=== PATIENT | male | born 1975 | race Caucasian/White ===

== ENCOUNTER 2024-02-16 17:36 | Inpatient (IN) | payer MEDICARE, SELFPAY ==
[2024-02-15 21:35] VITALS: BP 161/99
--- NOTE | 2024-02-16 01:37 | ED.GENMED ---
History of Present Illness
General
Chief Complaint: Back Pain
Source: patient
Exam Limitations: none
Time Seen by Provider: 02/16/24 01:22
Travel History
Have you had any contact with someone who has COVID-19?: No
Do you have any symptoms of coronavirus? Fever > 100 degrees, chills, cough, shortness of breath, sore throat, loss of taste or smell, muscle aches, or headache?: No
History of Present Illness
History of Present Illness:
This is a 48 year old male that comes in with c/o upper back discomfort. Patient states that he was rolling around on the ground working on his car. States that the next day he awoke and he felt like he must have bruised his back as he felt like his
legs were Paralyzed. States that this started a week ago. States that this got better every day but he still feels wobbly in his legs and he is using a can but this is also improving. Denies any fever, chills, chest pain, SOB, abd pain, nausea,
vomiting, diarrhea, bowel or bladder incont, headache, dizziness, urinary burning.
Past History
Past History
ED Past Medical History: Asthma, GERD and Other (Sepsis related to IVDA, Fracture back, Left lung abscess, Endocarditis, )
ED Past Surgical History: Cardiac, Orthopedic (right shoulder surgery, Spinal fusion) and Other (Hernia repair, )
Patient has exhibited threatening behavior?: No
PSI?: No
Social History
Tobacco: Former smoker
Alcohol: None
Drug: IVDA
Personal:
Living: with family
Employment: Employed
Family History
Family History: Other (Noncontributory)
Review of Systems
Review of Systems
All Other Systems: ROS reviewed and negative except as documented in HPI and ROS
Constitutional: Reports no symptoms; Denies fever or chills
EENT: Reports no symptoms
Respiratory: Reports no symptoms; Denies cough or trouble breathing
Cardiac: Reports no symptoms; Denies chest pain
ABD/GI: Reports no symptoms; Denies abdominal pain, nausea, vomiting or diarrhea
: Reports no symptoms; Denies dysuria, frequency or urgency
Musculoskeletal: Reports back pain (Upper back pain)
Skin: Reports no symptoms
Neurological: Reports no symptoms; Denies dizzy or headache
Psychiatric: Reports no symptoms
Phy Exam
General Physical Exam
General Presentation: no apparent distress
General age: appears stated age
General Skin: warm and dry
General Habitus: normal
General Mental: alert
General Hydration: appears well hydrated
ENT Exam
ENT Exam: TM's normal, pharynx normal and neck supple
Eye Exam
Eye Exam: EOMI
Cardiovascular Exam
Cardiovascular Exam: regular rate/rhythm, no edema, normal peripheral pulses and other (Murmur)
Pulmonary Exam
Pulmonary Exam: lungs clear, no respiratory distress, no rales, chest non tender, no crackles, no rhonchi, no wheezing and no cough
Gastrointestinal Exam
Gastrointestinal Exam: normal bowel sounds, non tender, soft, no organomegaly, no pulsatile mass, non distended and other (Large abd hernia, Soft to palpation)
Musculoskeletal Exam
Musculoskeletal Exam: full ROM, no edema and other (Push pulls equal. Able to hold legs up in the air bilateral 5 second. Tenderness to palpation upper back with slight swelling)
Skin Exam
Skin Exam: normal color, warm/dry, no rash and no petechia
Psychiatric Exam
Psychiatric Exam: normal mood/affect
Course
Orders/Labs/Results
Orders:
Orders
02/16/24 01:35
CT Thoracic Spine W/o Iv Contr Urgent
Comment: History of fracture back and spinal fusion
Reason For Exam: Upper back pain
02/16/24 02:09
CRP [C-Reactive Protein] Urgent
Complete Blood Count/With Diff Urgent
Comprehensive Metabolic Panel Urgent
Sed Rate [Erythrocyte Sed Rate] Urgent
02/16/24 03:10
Lactic Acid Urgent
02/16/24 03:15
Blood Culture Q30M
RUSS Source: Blood/Venous
Specimen Description:
02/16/24 03:45
Blood Culture Q30M
RUSS Source: Blood/Venous
Specimen Description:
Abnormal Lab Results
02/16/24
02:09
Hgb 11.1 L g/dL
(13.0-18.0)
Hct 37.2 L %
(39.0-52.0)
MCV 76.2 L fL
(80.0-94.0)
MCH 22.7 L pg
(27.0-31.0)
MCHC 29.8 L g/dL
(33.0-37.0)
RDW 20.0 H %
(11.5-14.5)
Creatinine 0.6 L mg/dL
(0.7-1.3)
Alkaline Phosphatase 135 H U/L
(38-126)
Total Protein 8.7 H g/dl
(6.3-8.2)
02/16/24 02:09
02/16/24 02:09
H/H slightly low. Anemia, Alk phos elevation. Total Protein slightly elevated. CRP normal at 6.60
Vital Signs
Initial and Last Documented VS:
Initial Vital Signs
Temp Pulse Resp BP Pulse Ox
98.0 F 81 18 161/99 98
02/15/24 21:35 02/15/24 21:35 02/15/24 21:35 02/15/24 21:35 02/15/24 21:35
Last Documented Vital Signs
Temp Pulse Resp BP Pulse Ox
98.0 F 68 16 141/87 100
02/15/24 21:35 02/16/24 02:05 02/16/24 02:05 02/16/24 02:05 02/16/24 02:05
Infection Control Nurse consulted with Physician
Infection Control Nurse consulted with physician?: Yes
Name of Physician Consulted: Dr. Benitez
MDM/Problems Addressed
Differential Diagnosis Includes:
Spinal contusion, Spinal abscess
MDM/Problems Addressed:
This is a 48 year old male that comes in with c/o upper back discomfort. States that a week ago he was working on his car and rolling around on the ground. States that the next day he was unable to move his legs but this has improved every day.
States that he is still a little wobbly on his feet and he has been using a cane.
Will check labs and get CT of the thoracic spine.
Back into see patient. Patient just walking back from the bathroom. Wobbly on his feet and using a cane. Explained that his CT is concerning for a discitis/osteomyelitis. Will admit patient and started IV antibiotics. Explained that he will most
likely need an MRI tomorrow. Will admit. Hospitalist notified and IV antibiotics ordered.
Chronic conditions affecting care:
Spinal fusion, Fracture back
Acute Exacerbation and/or Progression of Chronic Illness:
NA
*Radiology
Radiology exam reviewed: radiology read reviewed (CT thoracic night hawk-Posterior spinous fusion hardware from T2-T7. Severe vertebral body height loss with endplate erosion at T2 and T3, comcerning for age-indeterminate Discitis/osteomyelitis.
There is moderate surrounding soft tissue swelling. Correlate with clinical findings. Chronic wedge ) and other (CT cont- deformity at T4-5)
*Pulse Oximetry
Patient hypoxic: no
*EKG
Interpreted by ED Provider?: NA
Rate: EKG- N/A
*Programming Development Project Manager Interpretation
Rate: Programming Development Project Manager- N/A
*Critical Care Note
Total Time (30-74mins, 75-104mins- exclusive of procedures): Not Applicable
ED Attending Note
-
Portions of this chart may have been created with voice recognition software.� Occasional wrong word or��sound alike� substitutions may have occurred due to the inherent limitations of voice recognition software.
Discharge Plan
Departure
Patient Disposition: Admit
Date of Disposition: 02/16/24
Time of Disposition: 03:35
Admit to: Med/Surg
Presentation/result/management discussed w/ accepting MD/DO: Hospitalist
Patient with high blood pressure during this ER visit?: Yes
Condition: Good
Discharge Problem:
Pain, upper back, Discitis vs Osteomyelitis
Prescriptions:
No Action
albuterol sulfate 2.5 MG/3 ML solution for nebulization
2.5 mg inhalation R Q4HPRN PRN (Reason: sob) Qty: 75 0RF
Patient Comments:
07/24/22--Pt said he rarely uses. Mainly when sniffing drug he gets SOB.
albuterol sulfate 1 PUFF HFA aerosol inhaler
2 puff inhalation R Q4HPRN PRN (Reason: sob) Qty: 8.5 0RF
Patient Comments:
07/24/22--Only rarely uses the inhaler. Mainly when he is sniffing drugs
levofloxacin 750 mg tablet
750 mg PO Q24H 28 Days Qty: 28 0RF
ferrous sulfate 325 mg (65 mg iron) tablet
325 mg PO DAILY Qty: 30 0RF
oxycodone
15 mg PO 4XD PRN (Reason: pain)
Lyrica 50 mg
PO BID
Referrals:
Jerson Cho DO [Family Provider] -
Interventions
Interventions:
*General Assessment Last Done: 02/15/24 21:35
ED- Fall Risk Assessment Last Done: 02/16/24 02:26
*ED COVID-19 Vaccine History Last Done: 02/15/24 21:35
ED-Musculoskeletal Assessment Last Done: 02/16/24 02:26
Discharge Date and Time
Print Language: GREENLANDIC
[2024-02-16 02:05] VITALS: BP 141/87
[2024-02-16 02:51] LABS: % Basophils 0.6 % (0-2); % Eosinophils 4.8 % (0-6); % Immature Granulocytes 0.2 % (0-0.5); % Lymphocytes 37.4 % (20.5-51.1); % Monocytes 8.2 % (1.7-9.3); % Neutrophils 48.8 % (42.2-75.2); Absolute Eosinophils 0.3 10^3/uL (0-0.7); Absolute Lymphocytes 2.4 10^3/uL (1.2-3.4); Absolute Monocytes 0.5 10^3/uL (0.1-0.6); Absolute Neutrophils 3.2 10^3/uL (1.4-6.5); Hematocrit 37.2 % (39.0-52.0); Hemoglobin 11.1 g/dL (13.0-18.0); Mean Corp Hgb Conc. 29.8 g/dL (33.0-37.0); Mean Corpuscular Hgb 22.7 pg (27.0-31.0); Mean Corpuscular Volume 76.2 fL (80.0-94.0); Mean Platelet Volume 9.6 fL (7.4-10.4); Nucleated Red Blood Cells % 0 % (-); Platelet Count 267 10^3/uL (130-400); Red Blood Cell Count 4.88 10^6/uL (4.70-6.10); White Blood Cell Count 6.5 10^3/uL (4.8-10.8)
[2024-02-16 03:11] LABS: ALT (SGPT) 16 U/L (0-50); AST (SGOT) 23 U/L (17-59); Albumin 4.5 g/dl (3.5-5.0); Alkaline Phosphatase 135 U/L (38-126); Blood Urea Nitrogen 17 mg/dl (9-20); Calcium 9.6 mg/dl (8.4-10.2); Carbon Dioxide 28 mmol/L (22-30); Chloride 101 mmol/L (98-107); Glucose 98 mg/dl (70-99); Potassium 4.1 mmol/L (3.5-5.1); Sodium 140 mmol/L (135-145); Total Bilirubin 0.4 mg/dl (0.2-1.3); Total Protein 8.7 g/dl (6.3-8.2); eGFR > 60.00
[2024-02-16 03:59] VITALS: BMI 29.4
[2024-02-16 04:21] LABS: Erythrocyte Sed Rate 31 mm/hour (0-20)
[2024-02-16] MEDS: VANCOCIN 200 IV (04:21)
--- NOTE | 2024-02-16 04:30 | EDRN ---
Patient was provided a sandwich and drink, call jean-baptiste in [facility].
[2024-02-16 04:41] LABS: Lactic Acid 1.1 mmol/L (0.7-2.0)
--- NOTE | 2024-02-16 05:59 | HPS.HSE ---
Family Physician
-
Family Physician: Jerson Cho
Chief Complaint
-
Back Pain, LE Weakness
History of Present Illness
Patient is a 48y M with PMH significant for IVDA and prior endocarditis who presents to ED complaining of back pain and LE weakness. Patient states that he was doing work on his car about one week ago and was lying on the hard garage floor for a
prolonged period. The next morning, he woke with pain in the mid back and weakness / heaviness in his legs. He has since been walking with a cane, but does note that the strength in his legs has steadily improved. He had no numbness / tingling
sensations. He's had no incontinence of bowel or bladder. At the moment, patient states that he has no significant back pain. He presented to the ED for evaluation concerned given his prior history of infections and his hardware present in the
thoracic spine.
Patient denies any fevers / chills, N/V/D, chest pain, cough or dyspnea.
He notes that he is currently maintained on methadone (105mg daily). He states that his last use of IVDA was > 6 months ago.
No other illicit substances.
Medical History
Past Medical History
Past Medical History: Reports Other
Additional Past Medical History:
IVDA
Endocarditis
Thoracic Spine Discitis / Osteomyelitis
Asthma
Past Surgical History: Reports Other
Additional Past Surgical History:
Thoracic I&D and T2-T7 Fusion
Endovascular Aortic Valve Debridement / Valvuloplasty
Umbilical Herniorrhaphy
Right Shoulder Surgery
Social History
Tobacco: Former Smoker (Quit smoking at 22yo.)
Alcohol: Occasional (Very rare.)
Drug: IVDA (History of IV heroin / fentanyl use. Last use > 6 months ago.)
Family History
Family History: Not pertinent
Allergies / Home Medications
Allergies reflects when Allergies were last updated in [facility].
Home Medications with original date entered in [facility]
Allergy/Medication List:
Allergies
Allergy/AdvReac Type Severity Reaction Status Date / Time
tramadol Allergy Swelling Verified 02/15/24 21:37
Home Medications
methadone 5 mg tablet 105 mg PO DAILY 02/16/24
Review of Systems
-
History Source: Patient
A 12 point ROS was completed and negative except as noted: Yes
Constitutional: Reports Fatigue; Denies Fever or Chills
Respiratory: Denies Cough or Trouble Breathing
Cardiac: Denies Chest Pain or Palpitations
Abdomen/GI: Denies Abdominal Pain, Nausea, Vomiting or Diarrhea
: Denies Dysuria, Frequency or Flank Pain
Musculoskeletal: Reports Other (Back Pain)
Neurological: Reports Weakness; Denies Dizzy, Headache or Numbness
Psych: Denies Depression or Anxiety
Physical Exam
Vital Signs
Vital Signs
Temp Pulse Resp BP Pulse Ox
98.0 F 68 16 141/87 100
02/15/24 21:35 02/16/24 02:05 02/16/24 02:05 02/16/24 02:05 02/16/24 02:05
Physical Exam
General: Other (48y M in no acute distress.)
HEENT: Moist mucous membranes and PERRLA
Respiratory: Clear; No Wheezes, Rales or Rhonchi
Cardiac: S1/S2, Regular Rhythm and Murmur (IV / JACQUES)
GI: Soft, Non Tender, Non Distended, Normal Bowel Sounds and Other (Large midabdominal hernia. Soft, not tender. Pos BS.)
Musculoskeletal: No Clubbing, No Cyanosis and No Edema
Neuro: AO x 3 and Nonfocal/grossly intact
Laboratory Results
-
02/16/24 02:09
02/16/24 02:09
Laboratory Results
Lactic Acid 1.1 mmol/L (0.7-2.0) 02/16/24 03:59
Total Bilirubin 0.4 mg/dl (0.2-1.3) 02/16/24 02:09
AST 23 U/L (17-59) 02/16/24 02:09
ALT 16 U/L (0-50) 02/16/24 02:09
Alkaline Phosphatase 135 U/L (38-126) H 02/16/24 02:09
Impression/Plan
-
A/P: Patient is a 48y M with PMH significant for IVDA, prior osteo / discitis and thoracic surgery who presents to ED complaining of back pain and LE weakness.
Back Pain
Lower Extremity Weakness
- Observe overnight for further evaluation and treatment.
- His symptoms have largely improved over the past week.
- CT done in the ED shows possible osteo / discitis at T2-3 with surrounding inflammation.
- ESR is unimpressive. He is afebrile, non-toxic appearing.
- Blood cultures obtained in the ED.
- Would observe off of any further abx pending those results, temp changes or clinical changes.
- PT / OT evaluation for improving weakness / gait stability.
- Supportive care for back pain including anti-inflammatories, etc.
- NeuroSurgery evaluation for imaging review / additional evaluation.
- Follow for any new / worsening symptoms.
History of SBE
Murmur
- Check Echo.
- Follow-up blood culture results.
History of IVDA
Opioid Use Disorder
- Patient states that he is maintained on methadone.
- Resume usual dose after confirmation.
- PDMP shows recent Rx for oxycodone and Lyrica from [facility] - though patient states that he is on no other meds.
- Toradol / NSAIDs as needed for acute pain.
DVT Prophylaxis: Lovenox
Code Status: Full
--- NOTE | 2024-02-16 06:00 | EDRN ---
Patient up walking around in room, no complaints
--- NOTE | 2024-02-16 07:04 | EDRN ---
Report given to Larry Albrecht
[2024-02-16 07:11] VITALS: BP 140/85
--- NOTE | 2024-02-16 07:57 | W.PN.HOSP.TC ---
Today's Communication/Plan
-
MRI
Neuro surgery and ID eval
Assessment / Plan
Assessment / Plan
48-year-old male with history of discitis and thoracic surgery presented to the hospital with back pain and lower extremity weakness. He was working on his back on his car. Then he kind of slid off of that almost about 6 inches to the floor on his
back. Then he started feeling pain and weakness of the legs patient states that this happened about 10 days ago but his lower extremity weakness has improved since then.
CT of the thoracic spine-endplate erosions T2 and T3 with lucency adjacent to this close 3023 concern for discitis/osteomyelitis and hardware infection.
On examination awake alert nontoxic-appearing
Cardiovascular system S1-S2 appreciated systolic murmur at right heart border
Abdomen soft and nontender, large ventral hernia
Neuro exam good motor strength distally bilaterally
Denies any sensory deficits
No spine tenderness, kyphotic deformity of the upper thoracic spine with a scar
# Back pain with lower extremity weakness
CT in the ER showing possible osteomyelitis/discitis T2-T3 with surrounding inflammation
Afebrile
Blood cultures collected in the ER
Request neurosurgery infectious disease consultations requested
Neurochecks
MRI of the thoracic spine with and without contrast
No AB now.
#History of IV drug abuse currently maintained on methadone after verification
# T4-5 osteomyelitis and discitis with small epidural abscess and paraspinal abscess status post T4-5 decompression, irrigation debridement , T3-T7 fusion with instrumentation on 06/26/2022 at [place]
L3-L4 osteomyelitis with Lumbar paraspinal abscess .
Cultures with Serratia Marcescens.
Patient was advised to continue minocycline suppression after IV AB
He interrupted IV antibiotics and wanted to leave AMA therefore was given prescription for Levaquin for 6 weeks completion and follow-up recommended, patient states he completed Levaquin.
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
TV endocarditis�2021�Lauren treated at [facility] [place] [facility].
# History of hypertension-does not seem to be on medicines
# Abdominal wall hernia
# DVT prophylaxis-Lovenox
# Full code
Anticipated Discharge: > 48 hours
Subjective/Interval History
-
Date of Service: February 16, 2024
Objective Data
-
Labs:
Laboratory Results
02/16/24
02:09
WBC 6.5
Hgb 11.1 L
Hct 37.2 L
Plt Count 267
Sodium 140
Potassium 4.1
Chloride 101
Carbon Dioxide 28
BUN 17
Creatinine 0.6 L
Glucose 98
Calcium 9.6
Total Bilirubin 0.4
AST 23
ALT 16
Alkaline Phosphatase 135 H
Vital Signs:
Vital Signs
Temp Pulse Resp BP Pulse Ox
98.5 F 82 16 140/85 100
02/16/24 07:11 02/16/24 07:11 02/16/24 07:11 02/16/24 07:11 02/16/24 07:11
[2024-02-16 09:07] LABS: Methadone Positive (Negative)
[2024-02-16 09:08] LABS: Amphetamines Negative (Negative); Barbiturates Negative (Negative); Benzodiazepines Negative (Negative); Buprenorphine Negative (Negative); Cocaine Negative (Negative); Marijuana Negative (Negative); Methamphetamines Negative (Negative); Opiates Negative (Negative); Phencyclidine Negative (Negative); Tricyclic Antidepressants Negative (Negative)
[2024-02-16 09:30] LABS: Fentanyl, Urine Negative (Negative)
--- NOTE | 2024-02-16 09:58 | CON.ID ---
Consultation
-
Date/Time Consultation Requested: February 16, 2024 0814
Date/Time Consultation Performed: February 16, 2024 1000
Requesting Provider: Dr. Lokesh Neri
Performing Provider: Dr. Bridgett Ponce
Reason for Consultation: Back pain; hx discits/osteo with instrumentation 2021
Chief Complaint / Past History
Chief Complaint
Back pain
History of Present Illness
History obtained from review of medical records as well as from the patient. 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
status post decompression, T2-T7 fusion with pedicle screws at [place] in May 2022, culture grew Serratia, he was on short course of IV antibiotic then transition to oral levofloxacin x 6 weeks as patient signed out AMA. In November 2022 he
presented to the ER with acute back pain; MRI of the thoracic spine showed T4, T5 osteo with anterior paraspinal abscess. Blood cultures eventually grew MSSA. At that time ED arrange for transfer to [place] [facility] but patient left AMA. ED called his
. Patient reports he did eventually go to [facility], no surgical intervention, he was treated with IV antibiotics then oral antibiotic. He reports he was not placed on suppressive therapy. Last week he was working under his car
laying on his back on a board. He fell off the board at one point. The next day he developed upper back pain and could not move his legs. Over the course of the week, leg weakness improved but he still uses a cane. His upper back pain also was
improving. No fevers or chills. He reports he has not used IV drugs for more than 6 months.
Past History
Additional Past Medical History:
Hx IVDA on methadone
Hx Serration tricuspid valve IE, pulm septic emboli s/p Angiovac/vege debulking at [facility] (06/2021), completed abx.
Hx T4-T5 osteomyelitis/discitis/epidural abscess s/p decompression, T2-T7 fusion with pedicle screws (06/17/22 @ [place]); cx Serratia s/p2wks IV abx then 6 wks po levofloxacin at time (left AMA).
Picc associated polymicrobial bacteremia (06/2022)
12/24/22 MSSA bacteremia, thoracic T4, T5 osteo, paraspinal abscess, no surgical intervention at [place], tx with course of antibiotic IV then po
Umbilical hernia failed hx repair
Allergy History:
tramadol Allergy (Verified 02/15/24 21:37)
Swelling
Medications Reviewed: Yes
Current Antibiotics:
s/p Vancomycin x 1
Social History
Tobacco: Non-Smoker
Alcohol: None
Drug: Former User (IVDA)
Personal:
Living: With Family
Family History
Family History: Not Pertinent
Review of Systems
Review of Systems
General: Negative Fever, Chills or Change in Appetite
HEENT: Negative Sinus Problems or Headache
Cardiovascular: Negative Chest Pain or Edema
Respiratory: Negative Dyspnea or Cough
Gasteroenterology: Other (no diarrhea); Negative Nausea or Vomiting
Genital / Urological: Negative Dysuria or Flank Pain
Endocrine: Negative Weakness
Skin / Hair / Nails: Negative Rash
Neurological: Negative Headache or Dizziness
All systems: All other systems were reviewed and were negative
Vital Signs
Temp Pulse Resp BP Pulse Ox
98.5 F 82 16 140/85 100
02/16/24 07:11 02/16/24 07:11 02/16/24 07:11 02/16/24 07:11 02/16/24 07:11
Physical Exam
Physical Exam
Constitutional: No Acute Distress and Comfortable
Cardiovascular: Regular Rate and Murmur (LLSB)
Pulmonary: Clear
Gastrointestinal: Soft, Non Tender, Non Distended and Normal Bowel Sounds
Genito-Urinary: Negative CVA Tenderness
Extremities: Negative Edema
Musculoskeletal: Negative Spinal Tenderness
Neurological: AO x 3 and No Motor Deficits (BLE); Negative Meningeal Signs
Lab / Diagnostic Study Results
02/16/24 02:09
02/16/24 02:09
Abs Immat Gran (auto) 0.0 10^3/uL (0-0.05) 02/16/24 02:09
Absolute Neuts (auto) 3.2 10^3/uL (1.4-6.5) 02/16/24 02:09
Absolute Lymphs (auto) 2.4 10^3/uL (1.2-3.4) 02/16/24 02:09
Absolute Monos (auto) 0.5 10^3/uL (0.1-0.6) 02/16/24 02:09
Absolute Basos (auto) 0.0 10^3/uL (0-0.2) 02/16/24 02:09
Immature Gran % 0.2 % (0-0.5) 02/16/24 02:09
Neutrophils % 48.8 % (42.2-75.2) 02/16/24 02:09
Lymphocytes % 37.4 % (20.5-51.1) 02/16/24 02:09
Monocytes % 8.2 % (1.7-9.3) 02/16/24 02:09
Eosinophils % 4.8 % (0-6) 02/16/24 02:09
Basophils % 0.6 % (0-2) 02/16/24 02:09
ESR 31 mm/hour (0-20) H 02/16/24 02:09
Lactic Acid 1.1 mmol/L (0.7-2.0) 02/16/24 03:59
C-Reactive Protein 6.60 mg/L (0.0-10.00) 02/16/24 02:09
Microbiology Results
Micro:
02/16/24 03:59 Blood Culture - Pending
Blood/Venous
02/16/24 03:59 Blood Culture - Pending
Blood/Venous
02/16/24 CT thoracic spine: Postsurgical change of the thoracic spine as above. Endplate erosions at T2 and T3, with lucency adjacent to the screws at T2 and T3, concerning for discitis/osteomyelitis and/or hardware infection.
Assessment / Plan
# Probable thoracic osteo
- CT thorax: Endplate erosions at T2 and T3, with lucency adjacent to the screws at T2 and T3, concerning for discitis/osteomyelitis and/or hardware infection.
- For MRI thoracic spine today
-Agree with hold abx at this time. Pt hemodynamically stable
# Hx IVDA on methadone
Hx Serration tricuspid valve IE, pulm septic emboli s/p Angiovac/vege debulking at [facility] (06/2021), completed abx.
Hx T4-T5 osteomyelitis/discitis/epidural abscess s/p decompression, T2-T7 fusion with pedicle screws (06/17/22 @ [place]); cx Serratia s/p2wks IV abx then 6 wks po levofloxacin at time (left AMA).
12/24/22 MSSA bacteremia, thoracic T4, T5 osteo, paraspinal abscess, no surgical intervention at [place], tx with course of antibiotic IV then po
Care Review
Plan reviewed with: Physician (Dr. Neri)
--- NOTE | 2024-02-16 10:10 | W.PN.UPDATE ---
Update Note
Progress Note Update
Discussed with pharmacy. Patient is following up with [facility] but is visits have not been consistent. Because of his last dose of methadone was 01/24/2024 where he got 50 mg ,we will start with 30 mg today, 40 mg tomorrow and then 50 mg daily after
that.
[2024-02-16] MEDS: PEPCID 20 MG PO (10:19)
[2024-02-16] MEDS: METHADONE 100 MG/10 ML 30 MG PO (10:24)
--- NOTE | 2024-02-16 13:32 | CON.NS ---
Documented by User: Raya Molina PA-C 02/16/24 15:22
Chief Complaint
-
back pain
History of Present Illness
48-year-old male with history of discitis and thoracic surgery completed at [facility] 05/2022, chronic IV drug abuse now on methadone, OM s/p IV antibiotics 07/19 who presented to the hospital with c/o back pain and lower extremity weakness. About 10
days ago, he reports he was working on the back of his car when he slid off the back board and landed on his back. He noted pain and weakness in his legs after the fall. He states he did not have any back pain or leg weakness prior to the accident.
The day after the fall, he was unable to walk. Over the next several days, the strength in his legs improved and he is now able to ambulate with a cane. He presented to the ED after his continued to encourage him to come in for evaluation.
He has numbness in his toes that was not there prior to the fall. CT thoracic spine was completed and demonstrated Endplate erosions at T2 and T3, with lucency adjacent to the screws at T2 and T3. Neurosurgery was consulted for input. WBC is
6.5CRP is 6.8. ESR 31 (decreased from 88 on labs from 12/18). He denies any fevers, chills, difficultly with urination.
Review of Systems
-
All Other Systems: ROS reviewed and negative except as documented in HPI
Medication and Allergies
Home Medications
Home Medications
�Medication �Instructions �Recorded
methadone 10 mg/5 mL oral solution 0 mg PO DAILY opioid use disorder 02/16/24
Allergies
Allergies
Allergy/AdvReac Type Severity Reaction Status Date / Time
tramadol Allergy Swelling Verified 02/15/24 21:37
Physical Exam
-
Exam:
VSS
Awake, alert and oriented xs 3
HEENT: AT/NC
Cn 2-12 grossly intact
Speech: clear/fluent
Motor: 5/5
Sensation intact to crude touch
Respiratory: non labored breathing
Cardiac: RRR
kyphosis of the thoracic spine.
No swelling or edema
Imaging
CT Thoracic spine imaging and report personally reviewed
Exams: CT Thoracic Spine W/o Iv Contr
PROCEDURE: Noncontrast CT examination of the thoracic spine.
CLINICAL INDICATION: Back pain for the past 2 weeks.
TECHNIQUE: Contiguous helical acquisition of the thoracic spine without intravenous contrast. Axial reconstructions and sagittal and coronal reformats provided. Automated dose reduction technique was utilized for this exam.
COMPARISON: No prior studies available for comparison.
FINDINGS:
Spinal hardware extends from T2 through T7. Kyphotic deformity within the thoracic spine.
There is osteophytosis adjacent to the screws, most pronounced at T2 and T3.
Endplate erosions are also seen at T2 and T3.
There is mild associated paravertebral soft tissue swelling.
Remainder of the thoracic spine is within normal limits. Visualized lung sinclair are grossly clear.
IMPRESSION:
1. Postsurgical change of the thoracic spine as above.
2. Endplate erosions at T2 and T3, with lucency adjacent to the screws at T2 and T3, concerning for discitis/osteomyelitis and/or hardware infection.
Problems
-
Problem Status Onset Code
Pain, upper back M54.9
Assessment / Plan
-
48 y/o M with PMH of T2-T7 spinal fusion with Endplate erosions at T2 and T3, with lucency adjacent to the screws at T2 and T3,
--imaging reviewed by neurosurgical attending. No acute neurosurgical intervention indicated
--pain control
--ID for evaluation to determine if patient requires antibiotics. Await blood cx.
--PT/OT
--patient seen and discussed with Dr. Taveras.

Documented by User: Kaycee Taveras MD 02/16/24 15:46
Problems
-
Problem Status Onset Code
Pain, upper back M54.9
Assessment / Plan
-
48 y/o M with PMH of T2-T7 spinal fusion with Endplate erosions at T2 and T3, with lucency adjacent to the screws at T2 and T3,
--imaging reviewed by neurosurgical attending. No acute neurosurgical intervention indicated
--pain control
--ID for evaluation to determine if patient requires antibiotics. Await blood cx.
--PT/OT
--patient seen and discussed with Dr. Taveras.
ATTENDING ATTESTATION:
Patient seen and examined. Patient with history of cervical epidural abscess, status post thoracic decompression and fusion 2 years prior. Patient is postoperative care was managed at [place] in [place], initially, but then he reports that
he did not follow-up in [place] for delayed follow-up care. He reports that he was discharged from his spinal surgeon's care. He presents now with an episode where he fell onto his back on Thursday, and had subsequent onset of bilateral lower
extremity weakness. He reports that the symptoms have since improved. He now is able to ambulate and lift his legs up. He denies any thoracic back pain prior to this episode and currently denies any thoracic back pain. He is on methadone for
history of IV drug abuse, but insist that he has not utilized recreational drugs for quite some time.
CT of the thoracic spine, and MRI of the thoracic spine was reviewed, which demonstrates hardware failure with screw pullout. There is STIR signal hyperintensity noted at T2-T3 as well as within the T2, T3, T4 vertebrae. There appears to be a
pathologic fracture at T2 with severe kyphosis and retropulsion noted. There is ventral spinal cord compression, with signal change in the cord noted at T2. There is acute STIR signal hyperintensity noted within the anterior paraspinal soft
tissues of T1-T4. Additional discussion was held with the radiologist. Imaging was done without contrast. There is no obvious epidural or paraspinal fluid collection to strongly suggest definitively recurrent infection. Findings can also be due
to trauma/chronic inflammatory changes from pseudoarthrosis.
Patient with normal CRP levels, and modestly elevated ESR levels. Blood cultures are pending. Per the patient report, neurological examination is significantly improved since Thursday. Discussed extensively with the patient at bedside. Ultimately,
given his hardware failure, and proximal junctional kyphosis, he will require revision of his thoracic fusion with extension across the cervical thoracic junction. Discussed with infectious disease, and hospital medicine. Also discussed with
radiology to see whether contrast administration or any other radiological studies may be able to delineate whether or not the patient has indolent infection.
Plan will be to await blood cultures, and potentially consider IR guided biopsy. Pending these results, we will coordinate surgical revision surgery. Discussed surgical intervention, indications for surgery, and overall plan with the patient
extensively. Currently, he is amenable to staying in hospital. Will plan to discuss care with patient's , who is reportedly an RN.
Patient can go home per my specialty: No
[2024-02-16 15:06] VITALS: BP 133/81
--- NOTE | 2024-02-16 15:27 | W.PN.UPDATE ---
Update Note
Progress Note Update
MRI noted.
Changes may be secondary to acute fracture of the T2 vertebral body and failure of the posterior instrumentation hardware. No epidural or paraspinal fluid collection to indicate recurrent infection.
Wait for blood cultures.
If negative patient may need interventional radiology biopsy/culture to prove there is no infection prior to surgery.
Patient does not want to go back to [place]
Neurosurgery was consulted and following
Case discussed with neurosurgery and infectious disease.
Echo with a tricuspid density present but smaller in size than previous echo done here.
[2024-02-16 17:00] VITALS: BP 150/92; BMI 24.9
[2024-02-16] MEDS: LOVENOX 40 MG SC (17:17)
[2024-02-16] MEDS: PEPCID PO ×2 (20:09→20:14)
[2024-02-16 23:29] VITALS: BP 140/85
[2024-02-17 05:15] LABS: Hematocrit 35.4 % (39.0-52.0); Hemoglobin 10.9 g/dL (13.0-18.0); Mean Corp Hgb Conc. 30.8 g/dL (33.0-37.0); Mean Corpuscular Hgb 22.9 pg (27.0-31.0); Mean Corpuscular Volume 74.2 fL (80.0-94.0); Mean Platelet Volume 9.1 fL (7.4-10.4); Platelet Count 261 10^3/uL (130-400); Red Blood Cell Count 4.77 10^6/uL (4.70-6.10); Red Cell Dist. Width 20.3 % (11.5-14.5); White Blood Cell Count 6.1 10^3/uL (4.8-10.8)
[2024-02-17 05:42] LABS: Blood Urea Nitrogen 18 mg/dl (9-20); Calcium 9.6 mg/dl (8.4-10.2); Carbon Dioxide 27 mmol/L (22-30); Chloride 101 mmol/L (98-107); Estimated Creatinine Clearance > 125 ml/min; Glucose 102 mg/dl (70-99); Potassium 4.2 mmol/L (3.5-5.1); Sodium 139 mmol/L (135-145); eGFR > 60.00
[2024-02-17 07:45] VITALS: BP 139/93
[2024-02-17] MEDS: PEPCID PO ×2 (08:21→20:27)
[2024-02-17] MEDS: METHADONE 100 MG/10 ML 40 MG PO (10:56)
--- NOTE | 2024-02-17 11:58 | CM ---
Patient lives with his spouse, who is a nurse, in a 2 story home, patient is independent with adl's and ambulation, patient has a cane that he occasionally uses, Patient drives, home when stable, patient has a prescription plan and uses [facility]
pharmacy.
Plan; Home with spouse when stable.
--- NOTE | 2024-02-17 13:34 | W.PN.UPDATE ---
Update Note
Progress Note Update
Extensive discussion was held via telephone with patient's , Kari, with patient's permission on afternoon of 02/16/2024. Discussed imaging findings, and also current management plan.
She expressed understanding.
[2024-02-17 15:00] VITALS: BP 134/80
--- NOTE | 2024-02-17 15:10 | W.PN.HOSP.TC ---
Today's Communication/Plan
-
Brace
PT eval
Cancel interventional radiology consult
Assessment / Plan
Assessment / Plan
48-year-old male with history of discitis and thoracic surgery presented to the hospital with back pain and lower extremity weakness. He was working on his back on his car. Then he kind of slid off of that almost about 6 inches to the floor on his
back. Then he started feeling pain and weakness of the legs patient states that this happened about 10 days ago but his lower extremity weakness has improved since then.
CT of the thoracic spine-endplate erosions T2 and T3 with lucency adjacent to this close 3023 concern for discitis/osteomyelitis and hardware infection.
MRI of thoracic spine-more medicine will density changes T2, T3, T4 and T2/T3 intervertebral disc and edema in the anterior paraspinal soft tissue could be aseptic edema secondary to acute fracture of the T2 vertebral body and failure of the
posterior instrumentation hardware. No epidural or paraspinal fluid collection to strongly assess to suggest osteomyelitis or discitis.
Echo 02/16/2024-history of tricuspid valve endocarditis. Mild enlarged RV size and normal RV systolic function. Mildly dilated RA. Moderate TR. Mobile echodensity 1 cm in the bicuspid valve smaller than from 2021
On examination awake alert nontoxic-appearing
Cardiovascular system S1-S2 appreciated systolic murmur at right heart border
Abdomen soft and nontender, large ventral hernia
Neuro exam good motor strength distally bilaterally
Denies any sensory deficits
No spine tenderness, kyphotic deformity of the upper thoracic spine with a scar
# Back pain with lower extremity weakness prior to admission
5/5 strength of lower extremities on extra
Afebrile
Blood cultures negative so far
Neurochecks stable
No AB now.
Interventional radiology not clear which area can be biopsied there is no collection.
Discussed with infectious disease and neurosurgery. At this point patient may be discharged home with a brace which I have ordered and then eventually go back to surgery. He may get OR cultures sent. Will cancel IR consult
#History of IV drug abuse currently maintained on methadone .
Patient was not very compliant with this dose therefore we will start with a low-dose and will discharge on 50 mg daily dosage.
# T4-5 osteomyelitis and discitis with small epidural abscess and paraspinal abscess status post T4-5 decompression, irrigation debridement , T3-T7 fusion with instrumentation on 06/26/2022 at [place]
L3-L4 osteomyelitis with Lumbar paraspinal abscess .
Cultures with Serratia Marcescens.
Patient was advised to continue minocycline suppression after IV AB
He interrupted IV antibiotics and wanted to leave AMA therefore was given prescription for Levaquin for 6 weeks completion and follow-up recommended, patient states he completed Levaquin.
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
TV endocarditis�2021�Lauren treated at [facility].
Echo with vegetation is much smaller than in 2021
# History of hypertension-does not seem to be on medicines-blood pressure mostly stable
# Abdominal wall hernia
# DVT prophylaxis-Lovenox
# Full code
Discussed with infectious disease, interventional radiology and neurosurgery
Neurosurgery will discuss with patient's tomorrow
Orthotic brace ordered
Anticipated Discharge: Within 24 hours
Subjective/Interval History
-
Date of Service: February 17, 2024
Objective Data
-
Labs:
Laboratory Results
02/17/24
05:01
WBC 6.1
Hgb 10.9 L
Hct 35.4 L
Plt Count 261
Sodium 139
Potassium 4.2
Chloride 101
Carbon Dioxide 27
BUN 18
Creatinine 0.6 L
Glucose 102 H
Calcium 9.6
Vital Signs:
Vital Signs
Temp Pulse Resp BP Pulse Ox
98.5 F 75 18 139/93 99
02/17/24 07:45 02/17/24 07:45 02/17/24 07:45 02/17/24 07:45 02/17/24 07:45
I&O
02/16/24 02/17/24 02/18/24
06:59 06:59 06:59
Intake Total 600 / 600
Output Total 0 / 0
Balance 600 / 600
--- NOTE | 2024-02-17 16:36 | W.PN.ID1 ---
Date of Service
Date of Service: February 17, 2024
Today's Communication
Observe off abx.
See below.
Assessment / Plan
# Acute back pain
# Hx IVDA on methadone
# Hx Serratia tricuspid valve IE, pulm septic emboli s/p Angiovac/vege debulking at [facility] (06/2021), completed abx.
# Hx T4-T5 osteomyelitis/discitis/epidural abscess s/p decompression, T2-T7 fusion with pedicle screws (06/17/22 @ [place]); cx Serratia s/p2wks IV abx then 6 wks po levofloxacin at time (left AMA).
# Hx 12/24/22 MSSA bacteremia, thoracic T4, T5 osteo, paraspinal abscess, no surgical intervention at [place], tx with course of antibiotic IV then po
-MRI thoracic spine acute acute fracture of T2 vertebral body and failure of posterior instrumentation hardware
- Afebrile, normal wbc, normal CRP
-Blood cx's neg to date.
-TTE Tricuspid valve vege smaller compared to previous (pt h/o treated TV IE).
- Spine without fluid to aspirate.
-Extremely low suspicion for discitis/osteo of spine
Observe off antibiotic
Recommend at time of eventual hardware revision, send OR cultures. If positive, will treat with IV abx then suppressive abx.
Neurosurgeon Dr. Taveras agree with plan.
Chief Complaint
-: Other (Back pain)
Subjective / Review of Systems
No new complaints.
Vital Signs / Physical Exam
Vital Signs
Vital Signs
Temp Pulse Resp BP Pulse Ox
98.1 F 82 14 134/80 98
02/17/24 15:00 02/17/24 15:00 02/17/24 15:00 02/17/24 15:00 02/17/24 15:00
Physical Exam
Constitutional: No Acute Distress and Comfortable
Cardiovascular: Regular Rate, S1/S2 and Murmur
Pulmonary: Clear
Gastrointestinal: Soft, Non Tender and Non Distended
Neurological: AO x 3
Objective Data
Lab Data
Lab Results
02/17/24 05:01
02/17/24 05:01
ESR 31 mm/hour (0-20) H 02/16/24 02:09
Estimated Creat Clear > 125 ml/min 02/17/24 05:01
Lactic Acid 1.1 mmol/L (0.7-2.0) 02/16/24 03:59
Total Bilirubin 0.4 mg/dl (0.2-1.3) 02/16/24 02:09
AST 23 U/L (17-59) 02/16/24 02:09
ALT 16 U/L (0-50) 02/16/24 02:09
Alkaline Phosphatase 135 U/L (38-126) H 02/16/24 02:09
C-Reactive Protein 6.60 mg/L (0.0-10.00) 02/16/24 02:09
Most recent labs reviewed.
Micro Results:
02/16/24 03:59 Blood Culture - Preliminary
Blood/Venous No Growth in 24 hours- Final report to follow
02/16/24 03:59 Blood Culture - Preliminary
Blood/Venous No Growth in 24 hours- Final report to follow
02/16/24 17:21 MRSA Screen - Pending
Nose
02/16/24 CT thoracic spine: Postsurgical change of the thoracic spine as above. Endplate erosions at T2 and T3, with lucency adjacent to the screws at T2 and T3, concerning for discitis/osteomyelitis and/or hardware infection.
02/16/24 MRI thoracic spine wo: ACUTE INFECTIOUS DISCITIS at T2/T3. ACUTE OSTEOMYELITIS in the T2, T3, and T4 vertebra. ACUTE PATHOLOGIC FRACTURE of the T2 vertebral body with anterior vertebral body collapse, a severely exaggerated kyphosis, and
retropulsion of the posterior cortex causing MODERATE SPINAL CORD COMPRESSION and CENTRAL CANAL STENOSIS. Mild edema or myelomalacia in the spinal cord at the T2 level.
Osseous fusion across the T3/T4 intervertebral disc. Bilateral posterior osseous fusion from T2 to T6. Acute infectious phlegmon in the anterior paraspinal soft tissues at T1-T4. ADDENDUM: The bone marrow signal intensity changes in the T2, T3, and
T4 vertebra, the signal intensity changes in the T2/T3 intervertebral disc, and the edema in the anterior paraspinal soft tissues could all be aseptic edema secondary to the ACUTE FRACTURE of the T2 VERTEBRAL BODY and FAILURE of the POSTERIOR
INSTRUMENTATION HARDWARE. There is no epidural or paraspinal fluid collection to strongly suggest that the findings are secondary to recurrent infection (acute osteomyelitis and acute infectious discitis).
Care Review
Plan reviewed with: Physician (Halle Galindo)
[2024-02-17] MEDS: LOVENOX 40 MG SC (17:27)
[2024-02-17 23:20] VITALS: BP 116/78
[2024-02-18 07:30] VITALS: BP 124/83
[2024-02-18] MEDS: PEPCID PO (07:37)
[2024-02-18] MEDS: METHADONE 100 MG/10 ML 50 MG PO (08:35)
[2024-02-18 14:57] VITALS: BP 123/86; PULSE 86
[2024-02-18 15:05] VITALS: BP 123/86; PULSE 86
--- NOTE | 2024-02-18 15:09 | W.PN.HOSP.TC ---
Today's Communication/Plan
-
Discharge today after seen by PT OT and cleared
Patient to use orthotic brace on the he follows up with neurosurgery
Assessment / Plan
Assessment / Plan
48-year-old male with history of discitis and thoracic surgery presented to the hospital with back pain and lower extremity weakness. He was working on his back on his car. Then he kind of slid off of that almost about 6 inches to the floor on his
back. Then he started feeling pain and weakness of the legs patient states that this happened about 10 days ago but his lower extremity weakness has improved since then.
CT of the thoracic spine-endplate erosions T2 and T3 with lucency adjacent to this close 3023 concern for discitis/osteomyelitis and hardware infection.
MRI of thoracic spine-more medicine will density changes T2, T3, T4 and T2/T3 intervertebral disc and edema in the anterior paraspinal soft tissue could be aseptic edema secondary to acute fracture of the T2 vertebral body and failure of the
posterior instrumentation hardware. No epidural or paraspinal fluid collection to strongly assess to suggest osteomyelitis or discitis.
Echo 02/16/2024-history of tricuspid valve endocarditis. Mild enlarged RV size and normal RV systolic function. Mildly dilated RA. Moderate TR. Mobile echodensity 1 cm in the bicuspid valve smaller than from 2021
On examination awake alert nontoxic-appearing
Cardiovascular system S1-S2 appreciated systolic murmur at right heart border
Abdomen soft and nontender, large ventral hernia
Neuro exam good motor strength distally bilaterally
Denies any sensory deficits
No spine tenderness, kyphotic deformity of the upper thoracic spine with a scar
# Back pain with lower extremity weakness prior to admission
5/5 strength of lower extremities on extra
Afebrile
Blood cultures negative so far
Neurochecks stable
No AB now.
Discussed with neurosurgery
Brace ordered yesterday is here.
Patient getting physical therapy with that.
Plan is for the patient to follow-up with neurosurgery next week for surgery. Neurosurgery spoke to patient's and updated.
#History of IV drug abuse currently maintained on methadone .
Patient was not very compliant with this dose therefore we will start with a low-dose and will discharge on 50 mg daily dosage.
# T4-5 osteomyelitis and discitis with small epidural abscess and paraspinal abscess status post T4-5 decompression, irrigation debridement , T3-T7 fusion with instrumentation on 06/26/2022 at [place]
L3-L4 osteomyelitis with Lumbar paraspinal abscess .
Cultures with Serratia Marcescens.
Patient was advised to continue minocycline suppression after IV AB. He was not taking.
He interrupted IV antibiotics and wanted to leave AMA therefore was given prescription for Levaquin for 6 weeks completion and follow-up recommended, patient states he completed Levaquin.
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
TV endocarditis�2021�Lauren treated at [facility].
Echo with vegetation is much smaller than in 2021
# History of hypertension-does not seem to be on medicines-blood pressure mostly stable
# Abdominal wall hernia
# DVT prophylaxis-Lovenox
# Full code
Discussed with infectious disease, and neurosurgery
Orthotic brace is here and patient will need to use that he is aware.
Plan is for him to get outpatient surgery.
OR cultures will be obtained.
Antibiotics until then
Anticipated Discharge: Today
Subjective/Interval History
-
Date of Service: February 18, 2024
Objective Data
-
Vital Signs:
Vital Signs
Temp Pulse Resp BP Pulse Ox
98.1 F 81 18 124/83 98
02/18/24 07:30 02/18/24 07:30 02/18/24 07:30 02/18/24 07:30 02/18/24 07:30
I&O
02/17/24 02/18/24 02/19/24
06:59 06:59 06:59
Intake Total 600 / 600 1440 / 1440
Output Total 0 / 0
Balance 600 / 600 1440 / 1440
[2024-02-18 15:13] VITALS: BP 123/80
--- NOTE | 2024-02-18 15:16 | W.DS.TRANS ---
Addendum entered and electronically signed by Lokesh Neri MD 02/18/24 15:21:
Dictation- [id number]
Original Note:
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
-
Discharge Instructions:
Discharge Diagnosis/Procedures Abnormal changes in the thoracic spine-fracture
of T2 vertebral body, history of tricuspid valve
endocarditis,
Diet As tolerated
Activity No strenuous activity
Additional Activity Use thoracic orthotic brace as instructed
Driving Restrictions Not until seen by your Dr
Instructions:
Stand-Alone Forms:
Changes to Home Medications: Yes
Discharge Medications:
DC Medications w/original date entered in [facility]
acetaminophen 325 mg tablet 650 mg (2 x 325 mg) PO Q4HPRN PRN pain #0 tabs 02/18/24
lidocaine 4 % topical patch 1 patch topical DAILY Pain #0 ea 02/18/24
methadone 10 mg/mL oral concentrate (Methadose) 50 mg (5 mL) PO DAILY IVDA #0 mL 02/18/24
sennosides 8.6 mg tablet (Senokot) 8.6 mg PO BID PRN Constipation #60 tabs 02/18/24
Home Medication Changes
new
acetaminophen 325 mg tablet 650 mg (2 x 325 mg) PO Q4HPRN PRN pain #0 tabs 02/18/24
lidocaine 4 % topical patch 1 patch topical DAILY Pain #0 ea 02/18/24
sennosides 8.6 mg tablet (Senokot) 8.6 mg PO BID PRN Constipation #60 tabs 02/18/24
Pending Results: No
--- NOTE | 2024-02-18 15:36 | CM ---
Chart reviewed plan is home today no needs.
Plan; Home no needs.
--- NOTE | 2024-02-18 16:40 | PN.NS ---
Subjective
-
Patient seen and examined. Reports leg strength continues to improve. Patient was in bathroom while I entered into room.
Physical Exam
-
Exam:
Exam:
VSS
Awake, alert and oriented xs 3
HEENT: AT/NC
Cn 2-12 grossly intact
Speech: clear/fluent
Motor: 5/5 in bed
Gait: spastic
Cervicothoracic kyphotic deformity
Sensation intact to crude touch
Respiratory: non labored breathing
Cardiac: RRR
kyphosis of the thoracic spine.
No swelling or edema
Problems
-
Problem Status Onset Code
Pain, upper back M54.9
Assessment / Plan
-
48 y/o M with PMH of T2-T7 spinal fusion with Endplate erosions at T2 and T3, with lucency adjacent to the screws at T2 and T3,
Patient with Cervicothoracic hardware failure and proximal junctional kyphosis. Unclear whether patient has indolent infection, however, CRP levels and blood cultures are low and negative.
Extensive discussion held with patient and via telephone at bedside.
Patient will require revision and extension of thoracic fusion.
Will plan on obtaining intraoperative cultures.
Patient with [employer] brace at bedside.
I instructed patient to wear brace at all time when weightbearing, avoid strenuous activities and to follow up in office next week with Dr. Jimenez to discuss surgical planning. Should he have any new or worsening weakness in legs, he is
instructed to immediately return to ED.
and patient expresses understanding of plan and are in agreement to come in for follow up next week.
Today's Communication
-
discussed with patient, , RN, hospitalist and ID.
== END 2024-02-18 17:03 | disposition home or self-care (01) | DRG 552 ==
LOC: 4 WEST ACU 17:36
PROVIDERS: Clinical Nurse Specialist Family Health; ADMITTING PHYSICIAN Hospitalist; ATTENDING PHYSICIAN Hospitalist; CONSULT PHYSICIAN Internal Medicine Infectious Disease; CONSULT PHYSICIAN Neurological Surgery; EMERGENCY PHYSICIAN Emergency Medicine; FAMILY PHYSICIAN Family Medicine
DX: S22.029A Unspecified fracture of second thoracic vertebra, initial encounter for closed fracture (principal); M46.24 Osteomyelitis of vertebra, thoracic region; Z87.891 Personal history of nicotine dependence; M46.44 Discitis, unspecified, thoracic region; Z53.29 Procedure and treatment not carried out because of patient's decision for other reasons
CPT/HCPCS: 72128; 72146; 80048; 80053; 80306; 80307; 83605; 85025; 85027; 85652; 86140; 87040; 87070; 93306; 96365; 97530; 97535; 99285

== ENCOUNTER 2025-03-04 01:48 | Emergency (ER) | payer MEDICARE, SELFPAY ==
[2025-03-04 01:50] VITALS: BP 148/101
[2025-03-04 01:52] VITALS: BP 148/101; BMI 23.9
--- NOTE | 2025-03-04 02:31 | ED.GENMED ---
History of Present Illness
General
Chief Complaint: Abdominal Symptoms
Source: patient
Exam Limitations: none
Time Seen by Provider: 03/04/25 01:59
Nursing documentation reviewed up to this point in time: agreed with
History of Present Illness
History of Present Illness:
49-year-old male presents emergency department while in police custody, brought for clearance for [facility]pc. He reported that he has C. difficile and is currently taking vancomycin. He was ordered to the emergency department for concerns for contagion.
He also reports he has an abdominal hernia that needs to be operated upon. He denies any abdominal pain at this time.
Past History
Past History
ED Past Medical History: Asthma, GERD and Other (Sepsis related to IVDA, Fracture back, Left lung abscess, Endocarditis, )
ED Past Surgical History: Cardiac, Orthopedic (right shoulder surgery, Spinal fusion) and Other (Hernia repair, )
Patient has exhibited threatening behavior?: No
PSI?: No
Social History
Tobacco: Former smoker
Alcohol: None
Drug: IVDA
Personal:
Living: with family
Employment: Employed
Family History
Family History: Other (Noncontributory)
Review of Systems
Review of Systems
Allergies reviewed?: Yes
All Other Systems: Not applicable
Constitutional: Reports no symptoms
EENT: Reports no symptoms
Respiratory: Reports no symptoms
Cardiac: Reports no symptoms
ABD/GI: Reports diarrhea; Denies abdominal pain
: Reports no symptoms
Musculoskeletal: Reports no symptoms
Skin: Reports no symptoms
Neurological: Reports no symptoms
Endocrine: Reports no symptoms
Hematologic/Lymphatic: Reports no symptoms
Psychiatric: Reports no symptoms
Phy Exam
Physical Exam
Physical Exam:
Physical Exam
General: no apparent distress, not acutely ill
Neck: supple. no meningeal signs. normal posterior pharynx
Heart: s1/s2 regular rate and rhythm, no murmur. equal radial
pulses.
HEENT: Pupils equal round reactive to light, EOMI
Lungs: no acute respiratory distress. clear bilaterally
Abdomen: normal bowel sounds. not tender. no CVAT, large ventral hernia infraumbilical, nontender
Neuro: alert and oriented. no focal neurological deficits cranial nerves II through XII intact
Skin: no rash
Psychiatric: well kept. interactive and cooperative
Extremities: no edema. no calf tenderness. negative homans. good distal pulses
Course
Orders/Labs/Results
Orders:
Orders
03/04/25 02:10
Complete Blood Count/With Diff Urgent
Comprehensive Metabolic Panel Urgent
Lipase Urgent
Abnormal Lab Results
03/04/25
02:10
Hgb 11.9 L g/dL
(13.0-18.0)
Hct 36.3 L %
(39.0-52.0)
MCV 73.9 L fL
(80.0-94.0)
MCH 24.2 L pg
(27.0-31.0)
MCHC 32.8 L g/dL
(33.0-37.0)
RDW 15.3 H %
(11.5-14.5)
Absolute Monos (auto) 0.8 H 10^3/uL
(0.1-0.6)
Monocytes % 11.2 H %
(1.7-9.3)
Lipase 13 L U/L
(23-300)
03/04/25 02:10
03/04/25 02:10
Vital Signs
Initial and Last Documented VS:
Initial Vital Signs
BP
148/101
03/04/25 01:50
Last Documented Vital Signs
Temp Pulse Resp BP Pulse Ox
97.6 F 83 18 148/101 99
03/04/25 01:52 03/04/25 01:52 03/04/25 01:52 03/04/25 01:52 03/04/25 01:52
MDM/Problems Addressed
Differential Diagnosis Includes:
Incarcerated hernia, C. difficile
MDM/Problems Addressed:
49-year-old male with reports of diarrhea and C. difficile. No confirmed laboratory findings, but will continue patient's vancomycin follow-up with [facility].
*Pulse Oximetry
Patient hypoxic: no
*Critical Care Note
Total Time (30-74mins, 75-104mins- exclusive of procedures): Not Applicable
Data Reviewed
Further Testing Considered But Not Given:
ct a/p not indicated
Patient Management
Social determinants of health affecting care: Living situation and Financial situation
Escalation/DeEscalation of care consider admission/obs:
admit not indicated
ED Attending Note
-
Portions of this chart may have been created with voice recognition software.� Occasional wrong word or��sound alike� substitutions may have occurred due to the inherent limitations of voice recognition software.
Discharge Plan
Departure
Patient Disposition: [facility]
Date of Disposition: 03/04/25
Time of Disposition: 03:11
Patient with high blood pressure during this ER visit?: Yes
Condition: Good
Discharge Problem:
Diarrhea
Instructions: Diarrhea in teens and adults
Prescriptions:
New
vancomycin 125 mg capsule
125 mg PO QID 7 Days Qty: 28 0RF
No Action
acetaminophen 325 mg Tablet
650 mg PO Q4HPRN PRN (Reason: pain) Qty: 0 0RF
lidocaine 4 % Adhesive Patch,Medicated
1 patch topical DAILY Qty: 0 0RF
methadone [Methadose] 10 mg/mL Concentrate
50 mg PO DAILY Qty: 0 0RF
sennosides [Senokot] 8.6 mg tablet
8.6 mg PO BID PRN (Reason: Constipation) Qty: 60 0RF
Referrals:
UNKNOWN - PT DOES,NOT KNOW [Family Provider]
Activity Restrictions/Additional Instructions:
Follow-up with [facility]. You will need to follow-up with your surgeon as scheduled for your abdominal hernia.
Interventions
Interventions:
*Risk Screen - Suicide Last Done: 03/04/25 01:52
*General Assessment Last Done: 03/04/25 01:52
*Neglect/Abuse Screening Last Done: 03/04/25 01:52
*ED- Fall Risk Assessment Last Done: 03/04/25 01:57
*ED COVID-19 Vaccine History Last Done: 03/04/25 01:57
IB-Hxfshf-Zhxyigpfce Assessment Last Done: 03/04/25 01:57
Discharge Date and Time
Print Language: PANAMANIAN
[2025-03-04 02:42] LABS: % Basophils 0.7 % (0-2); % Eosinophils 4.6 % (0-6); % Immature Granulocytes 0.1 % (0-0.5); % Lymphocytes 24.6 % (20.5-51.1); % Monocytes 11.2 % (1.7-9.3); % Neutrophils 58.8 % (42.2-75.2); Absolute Basophils 0.1 10^3/uL (0-0.2); Absolute Eosinophils 0.3 10^3/uL (0-0.7); Absolute Lymphocytes 1.7 10^3/uL (1.2-3.4); Absolute Monocytes 0.8 10^3/uL (0.1-0.6); Hematocrit 36.3 % (39.0-52.0); Hemoglobin 11.9 g/dL (13.0-18.0); Mean Corp Hgb Conc. 32.8 g/dL (33.0-37.0); Mean Corpuscular Hgb 24.2 pg (27.0-31.0); Mean Corpuscular Volume 73.9 fL (80.0-94.0); Mean Platelet Volume 9.5 fL (7.4-10.4); Nucleated Red Blood Cells % 0 % (-); Platelet Count 333 10^3/uL (130-400); Red Blood Cell Count 4.91 10^6/uL (4.70-6.10); Red Cell Dist. Width 15.3 % (11.5-14.5); White Blood Cell Count 6.7 10^3/uL (4.8-10.8)
[2025-03-04 03:05] LABS: Blood Urea Nitrogen 14 mg/dl (9-20); Calcium 8.7 mg/dl (8.4-10.2); Carbon Dioxide 28 mmol/L (22-30); Chloride 102 mmol/L (98-107); Estimated Creatinine Clearance > 125 ml/min; Glucose 94 mg/dl (70-99); Lipase 13 U/L (23-300); Sodium 137 mmol/L (135-145); eGFR > 60.00
== END 2025-03-04 03:22 ==
LOC: EMR 01:48
PROVIDERS: EMERGENCY PHYSICIAN Emergency Medicine
DX: R19.7 Diarrhea, unspecified (principal); R10.9 Unspecified abdominal pain; R03.0 Elevated blood-pressure reading, without diagnosis of hypertension; B96.89 Other specified bacterial agents as the cause of diseases classified elsewhere; K46.9 Unspecified abdominal hernia without obstruction or gangrene; J45.909 Unspecified asthma, uncomplicated; K21.9 Gastro-esophageal reflux disease without esophagitis; F19.11 Other psychoactive substance abuse, in remission; Z98.1 Arthrodesis status; Z87.891 Personal history of nicotine dependence; Z88.6 Allergy status to analgesic agent
CPT/HCPCS: 99283; 80048; 83690; 85025

== ENCOUNTER 2025-03-06 17:09 | Emergency (ER) | payer MEDICARE, SELFPAY ==
[2025-03-06 17:14] VITALS: BP 147/92
--- NOTE | 2025-03-06 20:16 | ED.GENMED ---
History of Present Illness
General
Chief Complaint: Fall
Source: patient, records and previous radiology exam
Exam Limitations: none
Time Seen by Provider: 03/06/25 19:43
Nursing documentation reviewed up to this point in time: agreed with
History of Present Illness
History of Present Illness:
49-year-old male presents with pain at his known umbilical hernia states he fell at the store hit his hernia has had previous surgery there, had no vomiting no fever my evaluation he is resting comfortably in no acute distress
Past History
Past History
ED Past Medical History: Asthma, GERD and Other (Sepsis related to IVDA, Fracture back, Left lung abscess, Endocarditis, )
ED Past Surgical History: Cardiac, Orthopedic (right shoulder surgery, Spinal fusion) and Other (Hernia repair, )
Patient has exhibited threatening behavior?: No
PSI?: No
Social History
Tobacco: Former smoker
Alcohol: None
Drug: IVDA
Personal:
Living: with family
Employment: Employed
Family History
Family History: Other (Noncontributory)
Review of Systems
Review of Systems
All Other Systems: Not applicable
Constitutional: Denies fever
ABD/GI: Reports abdominal pain (No pain but swelling)
Phy Exam
Physical Exam
Physical Exam:
Physical Exam
General: 49-year-old male watching TV
Neck: No jaundice
Heart: s1/s2 regular rate and rhythm, no murmur. equal radial pulses.
Lungs: no acute respiratory distress. clear bilaterally
Abdomen: Soft large approximately 10 x 10 cm nontender soft abdominal wall hernia
Neuro: alert and oriented. no focal neurological deficits
Skin: no rash
Psychiatric: well kept. interactive and cooperative
Extremities: no edema.
Course
Orders/Labs/Results
Orders:
Orders
03/06/25 20:14
Acetaminophen [Tylenol] 650 mg PO NOW STA
Vital Signs
Initial and Last Documented VS:
Initial Vital Signs
Temp Pulse Resp BP Pulse Ox
98.5 F 89 16 147/92 98
03/06/25 17:14 03/06/25 17:14 03/06/25 17:14 03/06/25 17:14 03/06/25 17:14
Last Documented Vital Signs
Temp Pulse Resp BP Pulse Ox
98.5 F 89 16 147/92 98
03/06/25 17:14 03/06/25 17:14 03/06/25 17:14 03/06/25 17:14 03/06/25 17:14
MDM/Problems Addressed
Differential Diagnosis Includes:
Hernia local trauma no signs of incarceration or strangulation
MDM/Problems Addressed:
Abdominal wall hernia
Chronic conditions affecting care: Previous abdomnial surgery
Acute Exacerbation and/or Progression of Chronic Illness: Previous abdomnial surgery
*Radiology
Radiology exam reviewed: other (CT report from previously noted)
*Pulse Oximetry
Patient hypoxic: no
*Critical Care Note
Total Time (30-74mins, 75-104mins- exclusive of procedures): Not Applicable
Update Note
Update Note:
Update, patient thinks his hernia is larger since he fell there is no signs of strangulation, herniation, soft, nontender I did review a prior CAT scan hernia does not appear to be a new issue, I did review his PDMP, he has chronic pain syndrome he
is disabled, I have recommended that he follow-up with general surgery to talk about elective repair I see no indication for admission now or imaging
ED Attending Note
-
Portions of this chart may have been created with voice recognition software.� Occasional wrong word or��sound alike� substitutions may have occurred due to the inherent limitations of voice recognition software.
Discharge Plan
Departure
Patient Disposition: Home (Routine Discharge)
Date of Disposition: 03/06/25
Time of Disposition: 20:28
Patient with high blood pressure during this ER visit?: No
Condition: Good
Discharge Problem:
Abdominal hernia
Instructions: Abdominal wall hernia repair
Prescriptions:
No Action
acetaminophen 325 mg Tablet
650 mg PO Q4HPRN PRN (Reason: pain) Qty: 0 0RF
lidocaine 4 % Adhesive Patch,Medicated
1 patch topical DAILY Qty: 0 0RF
methadone [Methadose] 10 mg/mL Concentrate
50 mg PO DAILY Qty: 0 0RF
sennosides [Senokot] 8.6 mg tablet
8.6 mg PO BID PRN (Reason: Constipation) Qty: 60 0RF
vancomycin 125 mg capsule
125 mg PO QID 7 Days Qty: 28 0RF
Referrals:
Pierce Domínguez MD [Active, Surgical] - Next open appointment
Activity Restrictions/Additional Instructions:
Follow-up with [facility] general surgery to discuss repair of your hernia
If the hernia ever becomes hard, you have vomiting, or severe pain return to the ER
Interventions
Interventions:
*Risk Screen - Suicide Last Done: 03/06/25 17:14
*General Assessment Last Done: 03/06/25 17:14
*Neglect/Abuse Screening Last Done: 03/06/25 17:14
*ED- Fall Risk Assessment Last Done: 03/06/25 17:14
*ED COVID-19 Vaccine History Last Done: 03/06/25 17:14
Discharge Date and Time
Print Language: SPANISH
[2025-03-06] MEDS: TYLENOL 650 MG PO (20:21)
[2025-03-06 20:45] VITALS: BP 150/98
== END 2025-03-06 21:00 | disposition home or self-care (01) ==
LOC: EMR 17:09
PROVIDERS: EMERGENCY PHYSICIAN Emergency Medicine
DX: K43.9 Ventral hernia without obstruction or gangrene (principal); W19.XXXA Unspecified fall, initial encounter; Z87.891 Personal history of nicotine dependence
CPT/HCPCS: 99283